=== PATIENT | female | born 1940 | race Caucasian/White ===

== ENCOUNTER 2016-08-20 20:13 | Inpatient (IN) | payer MEDICARE ==
[~2016-08-20] VITALS: Ht 160 cm; Wt 71.8 kg
[2016-08-20] MEDS ORDERED: OPTIRAY 350 100 ML VIAL HMH IV ONE (20:14)
[2016-08-20] MEDS ORDERED: ONDANSETRON 4 MG VIAL ONE (20:59)
[2016-08-20] MEDS ORDERED: SODIUM CHLORIDE 0.9% 1,000 ML ONE (20:59)
[2016-08-20] MEDS ORDERED: ACETAMINOPHEN 325 MG SUPP RECTAL ONE (21:16)
[2016-08-20] MEDS ORDERED: DILTIAZEM 50 MG/10 ML VIAL IV ONE (23:13)
[2016-08-21] VITALS (7 sets, daily range): BP systolic 120–144; RESP 16–20; TEMP 98–99.3; BMI 25.8
[2016-08-21] MEDS ORDERED: CLINDAMYCIN 300 MG in DEXTROSE 5% 50 ML IV ONE (00:09)
[2016-08-21] MEDS: CEFTRIAXONE 1 GM in SODIUM CHLORIDE 0.9% 50 ML IV SCH (03:33)
[2016-08-21] MEDS: AZITHROMYCIN 500 MG in SODIUM CHLORIDE 0.9% 250 ML IV SCH (04:17)
[2016-08-21] MEDS ORDERED: ONDANSETRON 4 MG VIAL ONE (04:44)
[2016-08-21] MEDS: ONDANSETRON 4 MG VIAL IV PUSH PRN ×2 (04:54→08:54)
[2016-08-21] MEDS: ATENOLOL 25 MG TAB PO SCH ×2 (08:03→20:54)
[2016-08-21] MEDS: GABAPENTIN 300 MG CAP PO SCH ×3 (08:03→20:53)
[2016-08-21] MEDS ORDERED: SODIUM CHLORIDE 0.45% 1,000 ML IV SCH ×2 (14:05→16:15)
[2016-08-21] MEDS: DIPHENHYDRAMINE 50 MG CAP PO SCH (20:53)
[2016-08-21] MEDS: PANTOPRAZOLE 40 MG TAB PO SCH (20:54)
[2016-08-22 07:26] VITALS: BP_SYST 98; RESP 16; TEMP 97.1
[2016-08-22] MEDS: ARTIF TEARS OP SOLN 0.4ML EYE LT SCH (09:58)
[2016-08-22] MEDS: GABAPENTIN 300 MG CAP PO SCH ×3 (09:58→22:41)
[2016-08-22] MEDS: ESCITALOPRAM 10 MG TAB PO SCH (09:58)
[2016-08-22] MEDS: FLUTICASONE 0.05% NA BTL NARE EACH SCH (09:58)
[2016-08-22] MEDS: CEFTRIAXONE 1 GM in SODIUM CHLORIDE 0.9% 50 ML IV SCH (09:58)
[2016-08-22] MEDS: ATENOLOL 25 MG TAB PO SCH ×2 (09:58→22:41)
[2016-08-22] MEDS: AZITHROMYCIN 500 MG in SODIUM CHLORIDE 0.9% 250 ML IV SCH (12:51)
[2016-08-22 13:07] VITALS: BP_SYST 122; RESP 18; TEMP 98.2
[2016-08-22] MEDS ORDERED: KCL CR 20 MEQ TAB PO ONE (13:30)
[2016-08-22 14:24] VITALS: Ht 160 cm; Wt 71.8 kg
[2016-08-22 15:49] VITALS: BP_SYST 115; RESP 18; TEMP 98.1
[2016-08-22 19:00] VITALS: BP_SYST 113; RESP 18; TEMP 97.9
[2016-08-22] MEDS: TRAMADOL 50 MG TAB PO PRN (19:01)
[2016-08-22] MEDS: POLYETHYLENE GLYCOL 17 GM PACKET PO SCH (22:38)
[2016-08-22] MEDS: DIPHENHYDRAMINE 50 MG CAP PO SCH (22:39)
[2016-08-22] MEDS: PANTOPRAZOLE 40 MG TAB PO SCH (22:41)
[2016-08-23] VITALS (7 sets, daily range): BP systolic 101–135; RESP 16–18; TEMP 97.8–99.4
[2016-08-23] MEDS: ARTIF TEARS OP SOLN 0.4ML EYE LT SCH (06:10)
[2016-08-23] MEDS: GABAPENTIN 300 MG CAP PO SCH ×3 (08:55→20:55)
[2016-08-23] MEDS: POLYETHYLENE GLYCOL 17 GM PACKET PO SCH (08:55)
[2016-08-23] MEDS: FLUTICASONE 0.05% NA BTL NARE EACH SCH (08:55)
[2016-08-23] MEDS: ATENOLOL 25 MG TAB PO SCH ×2 (08:55→20:55)
[2016-08-23] MEDS: ESCITALOPRAM 10 MG TAB PO SCH (08:55)
[2016-08-23] MEDS: CEFTRIAXONE 1 GM in SODIUM CHLORIDE 0.9% 50 ML IV SCH (09:25)
[2016-08-23] MEDS: METFORMIN 500 MG TAB PO SCH ×2 (10:28→20:55)
[2016-08-23] MEDS: AZITHROMYCIN 500 MG in SODIUM CHLORIDE 0.9% 250 ML IV SCH (10:29)
[2016-08-23] MEDS: TRAMADOL 50 MG TAB PO PRN ×2 (10:34→21:08)
[2016-08-23] MEDS: PANTOPRAZOLE 40 MG TAB PO SCH (20:54)
[2016-08-23] MEDS: DIPHENHYDRAMINE 50 MG CAP PO SCH (20:55)
[2016-08-23] MEDS: SODIUM CHLORIDE 0.45% 1,000 ML IV SCH (21:08)
[2016-08-24 03:25] VITALS: BP_SYST 138; RESP 16; TEMP 97.9
[2016-08-24 07:22] VITALS: BP_SYST 151; RESP 18; TEMP 98.2
[2016-08-24] MEDS: FLUTICASONE 0.05% NA BTL NARE EACH SCH (08:15)
[2016-08-24] MEDS: ARTIF TEARS OP SOLN 0.4ML EYE LT SCH (08:16)
[2016-08-24] MEDS: METFORMIN 500 MG TAB PO SCH ×2 (08:17→20:46)
[2016-08-24] MEDS: GABAPENTIN 300 MG CAP PO SCH ×3 (08:19→20:46)
[2016-08-24] MEDS: ATENOLOL 25 MG TAB PO SCH ×2 (08:19→20:46)
[2016-08-24] MEDS: ESCITALOPRAM 10 MG TAB PO SCH (08:19)
[2016-08-24] MEDS: POLYETHYLENE GLYCOL 17 GM PACKET PO SCH (08:25)
[2016-08-24] MEDS: CEFTRIAXONE 1 GM in SODIUM CHLORIDE 0.9% 50 ML IV SCH (08:25)
[2016-08-24 11:39] VITALS: BP_SYST 116; RESP 16; TEMP 98.2
[2016-08-24 15:22] VITALS: BP_SYST 118; RESP 18; TEMP 98.9
[2016-08-24] MEDS: SODIUM CHLORIDE 0.45% 1,000 ML IV SCH (16:24)
[2016-08-24 19:34] VITALS: BP_SYST 123; RESP 20; TEMP 97.9
[2016-08-24] MEDS: DIPHENHYDRAMINE 50 MG CAP PO SCH (20:46)
[2016-08-24] MEDS: PANTOPRAZOLE 40 MG TAB PO SCH (20:46)
[2016-08-24 22:20] VITALS: BP_SYST 151; RESP 18; TEMP 98.3
[2016-08-25 04:59] VITALS: BP_SYST 138; RESP 18; TEMP 97.8
[2016-08-25 07:54] VITALS: BP_SYST 145; RESP 20; TEMP 97.5
[2016-08-25] MEDS ORDERED: MISSING DOSE XX ONE ×3 (09:40→11:35)
[2016-08-25] MEDS: FLUTICASONE 0.05% NA BTL NARE EACH SCH (09:49)
[2016-08-25] MEDS: ESCITALOPRAM 10 MG TAB PO SCH (09:49)
[2016-08-25] MEDS: GABAPENTIN 300 MG CAP PO SCH ×3 (09:49→20:30)
[2016-08-25] MEDS: ATENOLOL 25 MG TAB PO SCH ×3 (09:49→20:30)
[2016-08-25] MEDS: CEFTRIAXONE 1 GM in SODIUM CHLORIDE 0.9% 50 ML IV SCH (09:49)
[2016-08-25] MEDS: METFORMIN 500 MG TAB PO SCH ×2 (09:50→20:29)
[2016-08-25] MEDS: POLYETHYLENE GLYCOL 17 GM PACKET PO SCH ×2 (10:34→12:50)
[2016-08-25] MEDS: ARTIF TEARS OP SOLN 0.4ML EYE LT SCH (10:34)
[2016-08-25 11:06] VITALS: BP_SYST 122; RESP 20; TEMP 98.3
[2016-08-25] MEDS ORDERED: ARTIF TEARS OP SOLN 0.4ML EYE LT PRN (11:35)
[2016-08-25] MEDS ORDERED: DICYCLOMINE 10 MG CAP PO PRN (12:50)
[2016-08-25] MEDS ORDERED: ONDANSETRON 4 MG TAB PO PRN (12:50)
[2016-08-25] MEDS ORDERED: PROMETHAZINE 25 MG TAB PO PRN (12:50)
[2016-08-25] MEDS: TRAMADOL 50 MG TAB PO SCH ×2 (13:00→20:30)
[2016-08-25] MEDS: ACETAMINOPHEN 500 MG TAB PO SCH ×2 (13:00→20:30)
[2016-08-25] MEDS: SODIUM CHLORIDE 0.45% 1,000 ML IV SCH (13:21)
[2016-08-25 15:42] VITALS: BP_SYST 167; RESP 20; TEMP 98
[2016-08-25] MEDS: MULTIVITS/MINERALS (THERAGRAN M) TAB PO SCH (15:50)
[2016-08-25] MEDS: MELOXICAM 7.5 MG TAB PO SCH (15:50)
[2016-08-25 20:27] VITALS: BP_SYST 158; RESP 18; TEMP 97.6
[2016-08-25] MEDS: ROSUVASTATIN 5 MG TAB PO SCH (20:29)
[2016-08-25] MEDS: PANTOPRAZOLE 40 MG TAB PO SCH (20:30)
[2016-08-25] MEDS: DIPHENHYDRAMINE 50 MG CAP PO SCH (20:35)
[2016-08-25 23:17] VITALS: BP_SYST 134; RESP 16; TEMP 98.4
[2016-08-26] VITALS (7 sets, daily range): BP systolic 134–174; RESP 16–20; TEMP 98.3–98.9
[2016-08-26] MEDS ORDERED: PANTOPRAZOLE 40 MG TAB PO SCH (07:00)
[2016-08-26] MEDS: ESCITALOPRAM 10 MG TAB PO SCH (09:12)
[2016-08-26] MEDS: MELOXICAM 7.5 MG TAB PO SCH (09:12)
[2016-08-26] MEDS: MULTIVITS/MINERALS (THERAGRAN M) TAB PO SCH (09:12)
[2016-08-26] MEDS: GABAPENTIN 300 MG CAP PO SCH ×2 (09:12→21:10)
[2016-08-26] MEDS: SODIUM CHLORIDE 0.45% 1,000 ML IV SCH ×2 (09:12→17:54)
[2016-08-26] MEDS: FLUTICASONE 0.05% NA BTL NARE EACH SCH (09:12)
[2016-08-26] MEDS: CEFTRIAXONE 1 GM in SODIUM CHLORIDE 0.9% 50 ML IV SCH (09:13)
[2016-08-26] MEDS: TRAMADOL 50 MG TAB PO SCH ×2 (09:13→21:10)
[2016-08-26] MEDS: ACETAMINOPHEN 500 MG TAB PO SCH ×2 (09:13→21:09)
[2016-08-26] MEDS: ATENOLOL 25 MG TAB PO SCH ×2 (09:13→21:11)
[2016-08-26] MEDS: METFORMIN 500 MG TAB PO SCH ×2 (09:13→21:10)
[2016-08-26] MEDS: POLYETHYLENE GLYCOL 17 GM PACKET PO SCH (09:14)
[2016-08-26] MEDS: DIPHENHYDRAMINE 50 MG CAP PO SCH (21:10)
[2016-08-26] MEDS: ROSUVASTATIN 5 MG TAB PO SCH (21:11)
[2016-08-26] MEDS: PANTOPRAZOLE 40 MG TAB PO SCH (21:11)
[2016-08-27 03:02] VITALS: BP_SYST 143; RESP 16; TEMP 97.5
[2016-08-27 07:16] VITALS: BP_SYST 157; RESP 18; TEMP 98.2
[2016-08-27] MEDS: MELOXICAM 7.5 MG TAB PO SCH (09:07)
[2016-08-27] MEDS: CEFTRIAXONE 1 GM in SODIUM CHLORIDE 0.9% 50 ML IV SCH (09:07)
[2016-08-27] MEDS: POLYETHYLENE GLYCOL 17 GM PACKET PO SCH (09:07)
[2016-08-27] MEDS: FLUTICASONE 0.05% NA BTL NARE EACH SCH (09:07)
[2016-08-27] MEDS: ACETAMINOPHEN 500 MG TAB PO SCH (09:08)
[2016-08-27] MEDS: MULTIVITS/MINERALS (THERAGRAN M) TAB PO SCH (09:08)
[2016-08-27] MEDS: GABAPENTIN 300 MG CAP PO SCH (09:08)
[2016-08-27] MEDS: METFORMIN 500 MG TAB PO SCH (09:08)
[2016-08-27] MEDS: ATENOLOL 25 MG TAB PO SCH (09:08)
[2016-08-27] MEDS: TRAMADOL 50 MG TAB PO SCH (09:08)
[2016-08-27] MEDS: ESCITALOPRAM 10 MG TAB PO SCH (09:08)
[2016-08-27 11:25] VITALS: BP_SYST 126; RESP 18; TEMP 98.3
[2016-08-27 13:57] VITALS: BP_SYST 126; RESP 18; TEMP 98.3
== END 2016-08-27 17:22 | disposition home or self-care (01) | DRG 683 ==
LOC: ENRESERVDT → ENRESERV → ENRESERVTM → ER 20:13 → ENPENDDIS 08-21 00:10 → EMR 08-21 00:10 → PCU2 08-21 01:51 → 3NT 08-23 03:27
PROVIDERS: ADMIT Internal Medicine Hematology & Oncology; ATTEND Internal Medicine Hematology & Oncology
CPT/HCPCS: 36415; 71010; 74177; 80048; 80053; 81001; 83605; 83690; 85007; 85027; 87040; 87088; 87804; 87880; 93005; 96361; 96365; 96375

== ENCOUNTER 2016-09-03 21:51 | Emergency (ER) | payer MEDICARE ==
[2016-09-04] MEDS ORDERED: ALU/MAG/SIM 30 ML UDC ONE (00:04)
[2016-09-04] MEDS ORDERED: LIDOCAINE 2% VISC 15 ML UDC ONE (00:04)
== END 2016-09-04 02:27 | disposition home or self-care (01) ==
LOC: ER 21:51
CPT/HCPCS: 36415; 74022; 80053; 81003; 83690; 85025